=== PATIENT | female | born 1930 | race Caucasian/White ===

== ENCOUNTER 2018-11-06 14:30 | Observation (INO) ==
--- NOTE | 2018-11-06 14:54 | ERNOTE ---
Dyspnea - Date Date of Service: 11/06/18 - General Presenting Symptoms: shortness of breath Time Seen by Provider: 11/06/18 14:33 Source: patient Exam Limitations: no limitations - Immun/Allergies/Home Medications Immunizations: IMMUNIZATION HX Immunizations Up to Date Yes Allergies/Adverse Reactions: Allergies ciprofloxacin HCl [From Cipro HC] Allergy (Verified 11/06/18 14:53) sulfamethoxazole [From Bactrim DS] Allergy (Verified 11/06/18 14:53) trimethoprim [From Bactrim DS] Allergy (Verified 11/06/18 14:53) Home Medications: HOME MEDICATIONS Calcium Carbonate/Vitamin D3 [Calcium 600 + Vit D 400 Tablet] 1 ea PO DAILY 07/30/12 [Last Taken Unknown] Multivitamin/Iron/Folic Acid [Centrum Complete Multivit Tab] 1 ea PO DAILY 07/30/12 [Last Taken Unknown] levothyroxine 75 mcg tablet 75 mcg PO DAILY #90 tab 02/17/18 [Last Taken Unknown] sertraline 50 mg tablet 25 mg PO DAILY #45 tab 04/20/18 [Last Taken Unknown] Furosemide [Lasix] 20 mg PO BID #60 tab 06/12/18 [Last Taken Unknown] albuterol sulfate 2.5 mg/3 mL (0.083 %) solution for nebulization 1.25 mg IH QID PRN #90 ml 07/03/18 [Last Taken Unknown] metoprolol succinate ER 100 mg tablet,extended release 24 hr 100 mg PO BID #180 tab 07/03/18 [Last Taken Unknown] naproxen 500 mg tablet 500 mg PO BID #180 tab 07/03/18 [Last Taken Unknown] alprazolam 0.5 mg tablet 0.5 mg PO BID-TID PRN #30 tab 10/13/18 [Last Taken Unknown] amlodipine 5 mg tablet 5 mg PO DAILY #90 tab 10/26/18 [Last Taken Unknown] hydrochlorothiazide 25 mg tablet 25 mg PO DAILY #90 tab 10/26/18 [Last Taken Unknown] omeprazole 40 mg capsule,delayed release 40 mg PO DAILY #90 cap 10/26/18 [Last Taken Unknown] - History of Present Illness Narrative: Patient states for the past 2 wks she has been more SOB especially with activity. States today she became much more SOB and decided she had better come to the ER before the weekend. Called her PCP this past week and they told her to come to the ER. However she put it off until today. Denies any chest pain. States last Thanksgiving she was diagnosed with CHF and placed on lasix. Patient does not have any home O2 but borrowed a neighbors. In the triage room on 2 liters she was 55% NC. Patient states she is not staying and will leave AMA because her kids are coming home for [facility]. 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 Denies: chest pain/discomfort Review of Systems - Review of Systems Constitutional: Present: weakness, fatigue, decreased activity level. Absent: fever, chills EYE: Present: no symptoms reported ENT: Present: no symptoms reported Respiratory: Present: shortness of breath - Very severe with activity Cardiology: Present: edema - lower extremities. . Absent: chest pain, palpitations Gastrointestinal/Abdominal: Present: no symptoms reported Genitourinary: Present: no symptoms reported Musculoskeletal: Present: no symptoms reported Skin: Present: other - cyanotic on arrival. Neurological: Present: dizziness/light-headedness Hematologic/Lymphatic: Present: no symptoms reported Psych: Present: no symptoms reported Medical History (Updated 06/12/18 @ 11:56 by Pierre Luna DO) COPD (chronic obstructive pulmonary disease) Onset Date: Unknown GERD (gastroesophageal reflux disease) Onset Date: Unknown Hyperlipidemia Onset Date: Unknown Hypertension Onset Date: Unknown Hypothyroidism (acquired) Onset Date: Unknown Osteoarthritis Onset Date: Unknown Occipital neuralgia Onset Date: ~2012 Surgical History: Surgical History (Updated 03/09/18 @ 11:06 by Nani Arana CMA) History of ERCP Onset Date: 04/21/15 History of hernia repair Onset Date: 04/11/15 History of hip replacement, 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 01/2011, left 11/2010 History of left cataract surgery Onset Date: 08/17/12 History of right cataract surgery Onset Date: 08/03/12 History of temporal artery biopsy Onset Date: 10/02/12 Hx laparoscopic cholecystectomy Onset Date: 04/04/15 Family History: Family History (Updated 03/09/18 @ 11:08 by Nani Arana CMA) Father , age 83 CHF (congestive heart failure) Hypertension Emphysema, unspecified Mother , age 73 Diabetes CVA (cerebral vascular accident) Hypertension Social History: Preferred Language Czech Smoking Status Former smoker Psych History No pertinent hx (Last Updated 06/22/18 @ 13:47 by Naya Hernandez MD) No Social History Section defined Physical Exam - Physical Exam General Appearance: Present: wd/wn, alert, severe distress Head Exam: Present: normal inspection Eye Exam: Normal inspection: bilateral, PERRL: bilateral, EOMI: bilateral Ears, Nose, Throat: Present: normal ENT inspection, normal pharynx Neck: Present: normal inspection, nontender, other - No JVD bilateral at 30 degrees. . Absent: carotid bruit Respiratory: Present: respiratory distress, accessory muscle use, decreased b reath sounds, other - Cyanotic nose, lips, and tongue. Cardiovascular/Chest: Present: regular rate, rhythm, no murmur Peripheral Pulses: N=norm/S=strong/W=weak/B=bound/A=absent: Radial (R): Normal, Radial (L): Normal, Dorsalis-pedis (R): Normal, Dorsalis-pedis (L): Normal Gastrointestinal/Abdominal: Present: normal bowel sounds, nontender, nondistended, soft Back Exam: Present: normal range of motion, no CVA tenderness Extremity Exam: Present: extremity edema - 3+ bilateral pitting pedal edema Neurological Exam: Present: alert, oriented, normal mood/affect, no motor/sensory deficits Skin Exam: Present: cyanosis - nose, lips, and tongue. Lymphatic Exam: Present: no adenopathy Progress - Results and Orders Patient's Lab Results:: I have reviewed the patient's lab results. - Vital Signs Patient's Vital Signs:: I have reviewed the patient's vital signs. - CT/Ultrasound CT/Ultrasound Narrative: CTA chest - No PE, Mild esophagitis. - Progress/Reassessment Chief Complaint: Dyspnea Progress:: Improved - Improved with oxygen. Patient still requires 2 liters O2 to keep sats >90%. - Transfer of Care Additional Notes: Discussed patient with Dr. Daniels who agrees patient meets expectations for obs. placement. Discussed options with patient and she agrees to stay. Patient may need to be qualified for home O2. Departure Clinical Impression: Bronchial spasms, COPD exacerbation, Hypoxia - Departure Disposition: Still a patient Condition: Stable Referrals: Naya Hernandez MD [Primary Care Provider] -
[2018-11-06 15:03] LABS: Hematocrit 49.9 % (37.0-47.0); Hemoglobin 16.9 gm/dL (12.5-16.0); Mean Cell Volume 102.3 fl (78-100); Mean Corpuscular Hemoglobin 34.6 pg (27-31); Mean Corpuscular Hgb Conc 33.9 g/dl (32-36); Mean Platelet Volume 9.7 fl (8-12.5); Neutrophil # 6.1 K/mm3 (1.3-6.0); Platelet Count 215 K/mm3 (150-450); Red Blood Count 4.88 M/mm3 (4.2-5.4); White Blood Count 9.5 K/mm3 (4.0-10.5)
[2018-11-06 15:19] LABS: Anion Gap 9.3 mmol/L (6.8-13.8); BNP * 4275 pg/mL (5-550); BUN/Creatinine Ratio 31.2 (9.0-21.6); Blood Urea Nitrogen 39 mg/dL (3-23); Calcium * 9.6 mg/dL (7.9-10.9); Carbon Dioxide 35.8 mmol/L (24-32.6); Chloride 96 mmol/L (97-106); Glucose * 117 mg/dL (70-110); Potassium 3.1 mmol/L (3.4-4.6); Sodium 138 mmol/L (132-142); Troponin I 0.017 ng/mL (0.00-0.10)
[2018-11-06] MEDS ORDERED: FUROSEMIDE 10 MG/ML VIAL IV ONE (15:47)
[2018-11-06] MEDS ORDERED: POTASSIUM CHLORIDE 20 MEQ TABLET.SA PO ONE (15:57)
[2018-11-06 17:02] LABS: Urine Bilirubin Negative (NEGATIVE); Urine Blood Negative /ul (NEGATIVE); Urine Ketone Negative (NEGATIVE); Urine Nitrite Negative (NEGATIVE); Urine Protein Negative (NEGATIVE); Urine Urobilinogen Normal (NORMAL); Urine pH 6.5 pH (5.0-7.0)
[2018-11-06 17:15] LABS: Urine Appearance Clear (CLEAR); Urine Bacteria 1+; Urine Color Yellow; Urine RBC 0-5 /hpf (0-5); Urine WBC 0-5 /hpf (0-5)
[2018-11-06] MEDS ORDERED: cefTRIAXone SODIUM 1,000 MG/100 ML BAG IV ONE (20:35)
[2018-11-06] MEDS ORDERED: METHYLPREDNISOLONE SOD SUCC/PF 40 MG/ML VIAL IV ONE (20:36)
[2018-11-06] MEDS ORDERED: ALBUTEROL SULFATE 2.5 MG/0.5 ML VIAL.NEB IH PRN (20:42)
[2018-11-06] MEDS ORDERED: ALBUTEROL SULFATE/IPRATROPIUM 3 ML NEBU IH SCH (20:45)
[2018-11-06] MEDS ORDERED: ALPRAZolam 0.5 MG TABLET PO PRN (23:36)
[2018-11-06] MEDS ORDERED: ALBUTEROL SULFATE/IPRATROPIUM 3 ML NEBU IH ONE (23:59)
[2018-11-07] MEDS: ALBUTEROL SULFATE/IPRATROPIUM 3 ML NEBU IH SCH ×2 (00:05→06:03)
[2018-11-07] MEDS ORDERED: ALBUTEROL SULFATE 2.5 MG/0.5 ML VIAL.NEB IH PRN (07:15)
--- NOTE | 2018-11-07 07:23 | HP ---
Chief Complaint - Chief Complaint Date of Service: 11/07/18 Time of Service: 07: Chief Complaint: shortness of breath History of Present Illness: Delores Moore is an 88-year-old white female, patient of Dr. Hernandez, with past medical history of COPD, hypertension, hypothyroidism, hyperlipidemia who was admitted on 11/06/2018 because of shortness of breath. 4 weeks prior to admission the patient started getting short of breath with activity.. She denied fever or chills but would have occasional coughing and wheezing. 3 weeks ago she fell down and landed on the right side of her body hitting her shoulder and knee. She got almost bedridden with this episode. One week ago she started getting more short of breath associated with chills, sensation of having phlegm in her throat and chills. She called her PCP and she was told to go to the emergency room. Yesterday her shortness of breath as per patient was the maximum she asked for her neighbor's oxygen. The oxygen was not working properly and when she got to the emergency room as per ED she was blue on her face oxygenating in the 50''%. They put her on oxygen in the emergency room and her oxygen saturation improved although with ambulation she went down to the 70s again. WBC count, hemoglobin. Her GFR was 43, potassium 3.1. Was normal, EKG showed normal sinus rhythm with anterior septal myocardial infarction age undetermined. Her troponin was normal. Her chest x-ray showed no acute cardiopulmonary findings or pulmonary vascular congestion. Her d-dimer was elevated and so a CT angios was done which showed no pulmonary embolism, mild to moderate coronary calcification with mild enlarged heart. Emphysematous changes with chronic fibrotic changes. She was then admitted for observation and further treatment. Medical History (Updated 11/07/18 @ 08:03 by Rigo Daniels MD) CHF (congestive heart failure) COPD (chronic obstructive pulmonary disease) Onset Date: Unknown GERD (gastroesophageal reflux disease) Onset Date: Unknown Hyperlipidemia Onset Date: Unknown Hypertension Onset Date: Unknown Hypothyroidism (acquired) Onset Date: Unknown Osteoarthritis Onset Date: Unknown Occipital neuralgia Onset Date: ~2012 Surgical History: Surgical History (Updated 11/07/18 @ 07:23 by Rigo Daniels MD) History of ERCP Onset Date: 04/21/15 History of hernia repair Onset Date: 04/11/15 History of hip replacement, total Onset Date: right 01/2011, left 11/2010 History of left cataract surgery Onset Date: 08/17/12 History of right cataract surgery Onset Date: 08/03/12 History of temporal artery biopsy Onset Date: 10/02/12 Hx laparoscopic cholecystectomy Onset Date: 04/04/15 Family History: Family History (Updated 03/09/18 @ 11:08 by Nani Arana CMA) Father , age 83 CHF (congestive heart failure) Hypertension Emphysema, unspecified Mother , age 73 Diabetes CVA (cerebral vascular accident) Hypertension Social History: Patient Lives/Resources Home Utilized Occupation retired Preferred Language Portuguese Do you have any druze or Yes: muslim cultural preference? Smoking Status Former smoker Have you smoked in the past 12 No months Psych History No pertinent hx Alcohol Use none Drug Use none (Last Updated 06/22/18 @ 13:47 by Naya Hernandez MD) No Social History Section defined Review Of Systems (GEN) - Review of Systems Generalized/Overall Review: Present: Weakness, Chills. Absent: Fever EENTM: Absent: Blurred Vision Respiratory: Present: Cough, Shortness of Breath, Wheezing. Absent: Orthopnea Cardiac: Present: Edema - at the end of manuelito day. Absent: Chest Pain, Palpitations Abdominal: Absent: Nausea, Vomiting Genitourinary: Absent: Urgency, Frequency Musculoskeletal: Present: Joint Pain Neurological: Absent: Headache Skin: Absent: Lesions, Rash Endocrine: Absent: Intolerance to Cold, Intolerance to Heat Misc: All systems neg except as marked Immunizations: IMMUNIZATION HX Immunizations Up to Date Yes History of Influenza Vaccine Yes Hx Pneumococcal Vaccination Yes Allergies/Adverse Reactions: Allergies Allergy/AdvReac Type Severity Reaction Status Date / Time ciprofloxacin HCl Allergy Verified 11/06/18 21:54 [From Cipro HC] sulfamethoxazole Allergy Verified 11/06/18 21:54 [From Bactrim DS] trimethoprim Allergy Verified 11/06/18 21:54 [From Bactrim DS] Home Medications: HOME MEDICATIONS Calcium Carbonate/Vitamin D3 [Calcium 600 + Vit D 400 Tablet] 1 ea PO DAILY 07/30/12 [Last Taken Unknown] Multivitamin/Iron/Folic Acid [Centrum Complete Multivit Tab] 1 ea PO DAILY 07/30/12 [Last Taken Unknown] levothyroxine 75 mcg tablet 75 mcg PO DAILY #90 tab 02/17/18 [Last Taken Unknown] sertraline 50 mg tablet 25 mg PO DAILY #45 tab 04/20/18 [Last Taken Unknown] Furosemide [Lasix] 20 mg PO BID #60 tab 06/12/18 [Last Taken Unknown] alprazolam 0.5 mg tablet 0.5 mg PO BID-TID PRN #30 tab 10/13/18 [Last Taken Unknown] amlodipine 5 mg tablet 5 mg PO DAILY #90 tab 10/26/18 [Last Taken Unknown] hydrochlorothiazide 25 mg tablet 25 mg PO DAILY #90 tab 10/26/18 [Last Taken Unknown] omeprazole 40 mg capsule,delayed release 40 mg PO DAILY #90 cap 10/26/18 [Last Taken Unknown] Metoprolol Tartrate 100 mg PO BID 11/06/18 [Last Taken Unknown] oxyCODONE HCL/ACETAMINOPHEN [Oxycodone-Acetaminophen 5-325] 1 ea PO DAILY PRN 11/06/18 [Last Taken Unknown] Albuterol Sulfate [Proair Hfa] 1 - 2 puff INHALATION Q4H PRN #1 inhaler 11/07/18 [Last Taken Unknown] Albuterol Sulfate/Ipratropium [Duoneb 2.5-0.5MG/3ML Soln] 3 ml INHALATION QID #150 vial 11/07/18 [Last Taken Unknown] Azithromycin [Zithromax] 250 mg PO DAILY 5 Days #6 tab 11/07/18 [Last Taken Unknown] predniSONE [Prednisone] 20 mg PO DAILY 5 Days #10 tab 11/07/18 [Last Taken Unknown] Exam - Exam Vital Signs: Vital Signs - Last Taken Temp 36.4 C 11/07/18 06:29 Pulse 64 11/07/18 06:29 Resp 20 11/07/18 06:29 BP 137/61 11/07/18 06:29 Pulse Ox 89 L 11/07/18 06:29 Constitutional: Present: Alert, Oriented x3, Cooperative, Elderly, Thin and frail ENT Exam: Present: hearing grossly normal Eye Exam: bilateral eye: normal inspection, PERRL, EOMI Neck: Present: supple Respiratory: Present: decreased breath sounds, wheezing - occasional, No rales Cardiovascular/Chest: Present: regular rate, rhythm, no JVD, systolic murmur Abdomen: Present: Normal bowel sounds, soft, nontender, nondistended Extremity: Present: no pedal edema, no calf tenderness Diagnostic Studies: Abnormal Lab Results 11/06/18 11/06/18 11/06/18 Range/Units 14:55 14:55 14:55 Hgb 16.9 H (12.5-16.0) gm/dL Hct 49.9 H (37.0-47.0) % MCV 102.3 H (78-100) fl MCH 34.6 H (27-31) pg Immature Gran # (Auto) 0.04 H (0.000-0.0310) K/mm3 Lymphocytes % 13.7 L (20-51) % Monocytes % 12.6 H (0.0-9) % Eosinophils % 7.9 H (0.0-3.0) % Neutrophils # 6.1 H (1.3-6.0) K/mm3 Lymphocytes # 1.30 L (1.5-3.5) k/mm3 Monocytes # 1.2 H (0.0-1.0) k/mm3 Eosinophils # 0.8 H (0.0-0.7) k/mm3 D-Dimer 1.60 H (0.19-0.49) ug/mL pCO2 (32.0-45.0) mmHg HCO3 (21.0-28.0) mmol/L Total CO2 (19.0-24.0) mmol/L Base Excess (-2.0-3.0) mmol/L Potassium 3.1 L (3.4-4.6) mmol/L Chloride 96 L (97-106) mmol/L Carbon Dioxide 35.8 H (24-32.6) mmol/L BUN 39 H D (3-23) mg/dL Est GFR (Non-Af Amer) 43 L D (60-130) mL/min BUN/Creatinine Ratio 31.2 H (9.0-21.6) Random Glucose 117 H (70-110) mg/dL B-Natriuretic Peptide 4275 H (5-550) pg/mL Urine Bacteria (NONE) 11/06/18 11/06/18 Range/Units 15:12 16:20 Hgb (12.5-16.0) gm/dL Hct (37.0-47.0) % MCV (78-100) fl MCH (27-31) pg Immature Gran # (Auto) (0.000-0.0310) K/mm3 Lymphocytes % (20-51) % Monocytes % (0.0-9) % Eosinophils % (0.0-3.0) % Neutrophils # (1.3-6.0) K/mm3 Lymphocytes # (1.5-3.5) k/mm3 Monocytes # (0.0-1.0) k/mm3 Eosinophils # (0.0-0.7) k/mm3 D-Dimer (0.19-0.49) ug/mL pCO2 57.6 H (32.0-45.0) mmHg HCO3 33.5 H (21.0-28.0) mmol/L Total CO2 35.2 H (19.0-24.0) mmol/L Base Excess 6.3 H (-2.0-3.0) mmol/L Potassium (3.4-4.6) mmol/L Chloride (97-106) mmol/L Carbon Dioxide (24-32.6) mmol/L BUN (3-23) mg/dL Est GFR (Non-Af Amer) (60-130) mL/min BUN/Creatinine Ratio (9.0-21.6) Random Glucose (70-110) mg/dL B-Natriuretic Peptide (5-550) pg/mL Urine Bacteria 1+ H (NONE) Laboratory Results WBC 9.5 K/mm3 (4.0-10.5) 11/06/18 14:55 RBC 4.88 M/mm3 (4.2-5.4) 11/06/18 14:55 Hgb 16.9 gm/dL (12.5-16.0) H 11/06/18 14:55 Hct 49.9 % (37.0-47.0) H 11/06/18 14:55 MCV 102.3 fl (78-100) H 11/06/18 14:55 MCH 34.6 pg (27-31) H 11/06/18 14:55 MCHC 33.9 g/dl (32-36) 11/06/18 14:55 RDW 13.0 % (11.5-14.0) 11/06/18 14:55 Plt Count 215 K/mm3 (150-450) 11/06/18 14:55 MPV 9.7 fl (8-12.5) 11/06/18 14:55 Immature Gran % (Auto) 0.40 % (0.001-0.429) 11/06/18 14:55 Immature Gran # (Auto) 0.04 K/mm3 (0.000-0.0310) H 11/06/18 14:55 65.0 % (42-75.0) 11/06/18 14:55 13.7 % (20-51) L 11/06/18 14:55 12.6 % (0.0-9) H 11/06/18 14:55 7.9 % (0.0-3.0) H 11/06/18 14:55 0.4 % (0.0-1.0) 11/06/18 14:55 Nucleated RBC % 0.0 k/mm3 (0-1) 11/06/18 14:55 6.1 K/mm3 (1.3-6.0) H 11/06/18 14:55 1.30 k/mm3 (1.5-3.5) L 11/06/18 14:55 1.2 k/mm3 (0.0-1.0) H 11/06/18 14:55 0.8 k/mm3 (0.0-0.7) H 11/06/18 14:55 Absolute Basophils 0.0 k/mm3 (0.0-0.1) 11/06/18 14:55 1.60 ug/mL (0.19-0.49) H 11/06/18 14:55 pCO2 57.6 mmHg (32.0-45.0) H 11/06/18 15:12 pO2 87.6 mmHg (83.0-108.0) 11/06/18 15:12 HCO3 33.5 mmol/L (21.0-28.0) H 11/06/18 15:12 Total CO2 35.2 mmol/L (19.0-24.0) H 11/06/18 15:12 Base Excess 6.3 mmol/L (-2.0-3.0) H 11/06/18 15:12 ABG pH 7.38 (7.35-7.45) 11/06/18 15:12 ABG O2 Sat (Measured) 96.3 % (94.0-98.0) 11/06/18 15:12 Sodium 138 mmol/L (132-142) 11/06/18 14:55 138 mmol/L (130-142) 11/06/18 14:55 Potassium 3.1 mmol/L (3.4-4.6) L 11/06/18 14:55 Chloride 96 mmol/L (97-106) L 11/06/18 14:55 Carbon Dioxide 35.8 mmol/L (24-32.6) H 11/06/18 14:55 9.3 mmol/L (6.8-13.8) 11/06/18 14:55 BUN 39 mg/dL (3-23) H D 11/06/18 14:55 1.25 mg/dL (0.4-1.4) 11/06/18 14:55 Est GFR (Non-Af Amer) 43 mL/min (60-130) L D 11/06/18 14:55 31.2 (9.0-21.6) H 11/06/18 14:55 117 mg/dL (70-110) H 11/06/18 14:55 Calcium 9.6 mg/dL (7.9-10.9) 11/06/18 14:55 0.017 ng/mL (0.00-0.10) 11/06/18 14:55 B-Natriuretic Peptide 4275 pg/mL (5-550) H 11/06/18 14:55 Yellow 11/06/18 16:20 Clear (CLEAR) 11/06/18 16:20 6.5 pH (5.0-7.0) 11/06/18 16:20 Ur Specific [place] 1.010 SP.GR. (1.005-1.010) 11/06/18 16:20 Negative mg/dL (NEGATIVE) 11/06/18 16:20 Negative mg/dL (NEGATIVE) 11/06/18 16:20 Negative mg/dL (NEGATIVE) 11/06/18 16:20 Negative /ul (NEGATIVE) 11/06/18 16:20 Negative (NEGATIVE) 11/06/18 16:20 Negative mg/dl (NEGATIVE) 11/06/18 16:20 Normal EU/dl (NORMAL) 11/06/18 16:20 Ur Leukocyte Esterase Negative /ul (NEGATIVE) 11/06/18 16:20 0-5 /hpf (0-5) 11/06/18 16:20 0-5 /hpf (0-5) 11/06/18 16:20 Ur Epithelial Cells 0-5 /hpf (0-5) 11/06/18 16:20 1+ (NONE) H 11/06/18 16:20 No culture indicated 11/06/18 16:20 Assessment/Plan - Narrative Narrative: Continue with her home medications - Assessment/Plan (1) Hypoxia Assessment: continue with O2 supplementation Problem: Acute (2) COPD exacerbation Assessment: continue with Duoneb/ IV solumedrol/IV antibitoics Problem: Acute (3) COPD (chronic obstructive pulmonary disease) with acute bronchitis Assessment: continue with antibiotics Problem: Acute (4) Hypokalemia Problem: Acute (5) Hypertension Problem: Chronic Qualifiers: Hypertension type: essential hypertension Qualified Code(s): I10 - Essential (primary) hypertension (6) CRF (chronic renal failure) Assessment: will hold her naproxen Problem: Chronic Qualifiers: Chronic kidney disease stage: stage 3 (moderate) Qualified Code(s): N18.3 - Chronic kidney disease, stage 3 (moderate)
[2018-11-07] MEDS ORDERED: oxyCODONE HCL/ACETAMINOPHEN 1 TAB TABLET PO PRN (07:53)
[2018-11-07] MEDS ORDERED: METHYLPREDNISOLONE SOD SUCC/PF 40 MG/ML VIAL IV SCH (08:00)
[2018-11-07] MEDS: METOPROLOL TARTRATE 100 MG TABLET PO SCH ×2 (08:42)
[2018-11-07] MEDS ORDERED: PANTOPRAZOLE SODIUM 40 MG TABLET.EC PO SCH (09:00)
[2018-11-07] MEDS ORDERED: FUROSEMIDE 20 MG TABLET PO SCH (09:00)
[2018-11-07] MEDS ORDERED: METOPROLOL TARTRATE 100 MG TABLET PO SCH (09:00)
[2018-11-07] MEDS ORDERED: HYDROCHLOROTHIAZIDE 25 MG TABLET PO SCH (09:00)
[2018-11-07] MEDS ORDERED: amLODIPine BESYLATE 5 MG TABLET PO SCH (09:00)
[2018-11-07] MEDS ORDERED: LEVOTHYROXINE SODIUM 75 MCG TABLET PO SCH (09:00)
[2018-11-07] MEDS ORDERED: SERTRALINE HCL 50 MG TABLET PO SCH (09:00)
[2018-11-07] MEDS ORDERED: MULTIVITAMIN/IRON/FOLIC ACID 1 TAB TABLET PO SCH (09:00)
[2018-11-07] MEDS ORDERED: CALCIUM CARBONATE/VITAMIN D3 1 TAB TABLET PO SCH (09:00)
[2018-11-07] MEDS ORDERED: POTASSIUM CHLORIDE 20 MEQ TABLET.SA PO ONE (10:50)
--- NOTE | 2018-11-07 11:24 | DS ---
(1) Hypoxia Problem: Acute (2) COPD exacerbation Problem: Acute (3) COPD (chronic obstructive pulmonary disease) with acute bronchitis Problem: Acute (4) Hypokalemia Problem: Acute (5) Hypertension Problem: Chronic Qualifiers: Hypertension type: essential hypertension Qualified Code(s): I10 - Essential (primary) hypertension Description of Stay: Delores Moore is an 88-year-old white female, patient of Dr. Hernandez, with past medical history of COPD, hypertension, hypothyroidism, hyperlipidemia who was admitted on 11/06/2018 because of shortness of breath. 4 weeks prior to admission the patient started getting short of breath with activity.. She denied fever or chills but would have occasional coughing and wheezing. 3 weeks ago she fell down and landed on the right side of her body hitting her shoulder and knee. She got almost bedridden with this episode. One week ago she started getting more short of breath associated with chills, sensation of having phlegm in her throat and chills. She called her PCP and she was told to go to the emergency room. Yesterday her shortness of breath as per patient was the "maximum" she asked for her neighbor's oxygen. The oxygen was not working properly and when she got to the emergency room as per ED she was blue on her face oxygenating in the 50''%. They put her on oxygen in the emergency room and her oxygen saturation improved although with ambulation she went down to the 70s again. WBC count, hemoglobin. Her GFR was 43, potassium 3.1. Was normal, EKG showed normal sinus rhythm with anterior septal myocardial infarction age undetermined. Her troponin was normal. Her chest x-ray showed no acute cardiopulmonary findings or pulmonary vascular congestion. Her d-dimer was elevated and so a CT angio was done which showed no pulmonary embolism, mild to moderate coronary calcification with mild enlarged heart. Emphysematous changes with chronic fibrotic changes. She was then admitted for observation and further treatment. She was started on IV antibiotics, duoneb breathing treatments, IV solumedrol . At rest w/o she goes in the 82 % and with ambulations she dropped own to 72 %. With O2 she goes up in the 93-94%. She wants to go home and will send her home with home O2 at 2-3 L to keep O2 saturation above 88 %, prednisone, azithromycin, Duoneb and Albuterol inhaler for rescue breathing. Will schedule her an Echocardiogram and Xray of her right shoulder on outpatient basis. Procedures Performed: none Results and Findings: Lab Pending Results 11/06/18 14:55: WBC 9.5, RBC 4.88, Hgb 16.9 H, Hct 49.9 H, MCV 102.3 H, MCH 34.6 H, MCHC 33.9, RDW 13.0, Plt Count 215, MPV 9.7, Immature Gran % (Auto) 0.40, Immature Gran # (Auto) 0.04 H, Neutrophils % 65.0, Lymphocytes % 13.7 L, Monocytes % 12.6 H, Eosinophils % 7.9 H, Basophils % 0.4, Nucleated RBC % 0.0, Neutrophils # 6.1 H, Lymphocytes # 1.30 L, Monocytes # 1.2 H, Eosinophils # 0.8 H, Absolute Basophils 0.0 11/06/18 14:55: Sodium 138, Plasma Sodium 138, Potassium 3.1 L, Chloride 96 L, Carbon Dioxide 35.8 H, Anion Gap 9.3, BUN 39 H D, Creatinine 1.25, Est GFR (Non- Af Amer) 43 L D, BUN/Creatinine Ratio 31.2 H, Random Glucose 117 H, Calcium 9.6, Troponin I 0.017, B-Natriuretic Peptide 4275 H 11/06/18 14:55: D-Dimer 1.60 H 11/06/18 15:12: pCO2 57.6 H, pO2 87.6, HCO3 33.5 H, Total CO2 35.2 H, Base Excess 6.3 H, ABG pH 7.38, ABG O2 Sat (Measured) 96.3 11/06/18 16:20: Urine Color Yellow, Urine Appearance Clear, Urine pH 6.5, Ur Specific [place] 1.010, Urine Protein Negative, Urine Glucose (UA) Negative, Urine Ketones Negative, Urine Blood Negative, Urine Nitrate Negative, Urine Bilirubin Negative, Urine Urobilinogen Normal, Ur Leukocyte Esterase Negative, Urine RBC 0-5, Urine WBC 0-5, Ur Epithelial Cells 0-5, Urine Bacteria 1+ H, Urine Culture Comments No culture indicated Discharge Location: Home Disposition: Home self-care Condition: Stable Discharge Activity: Activity as tolerated Discharge Diet: Low salt Referrals: Naya Hernandez MD [Primary Care Provider] - Additional Patient Instructions (free text): Follow up with Dr. Hernandez in 1 week. Schedule an Echocardiogram - [facility] and Xray of her right shoulder as an outpatient- fall /decreased ROM. Prescriptions (Any new or edited meds): Albuterol Sulfate/Ipratropium [Duoneb 2.5-0.5MG/3ML Soln] 3 ml INHALATION QID #150 vial predniSONE [Prednisone] 20 mg PO DAILY 5 Days #10 tab Albuterol Sulfate [Proair Hfa] 1 - 2 puff INHALATION Q4H PRN #1 inhaler PRN Reason: Shortness Of Breath Azithromycin [Zithromax] 250 mg PO DAILY 5 Days #6 tab Complete Home Medications List: Complete Home Medication List: Calcium Carbonate/Vitamin D3 [Calcium 600 + Vit D 400 Tablet] 1 ea PO DAILY 07/30/12 Multivitamin/Iron/Folic Acid [Centrum Complete Multivit Tab] 1 ea PO DAILY 07/30/12 levothyroxine 75 mcg tablet 75 mcg PO DAILY #90 tab 02/17/18 sertraline 50 mg tablet 25 mg PO DAILY #45 tab 04/20/18 Furosemide [Lasix] 20 mg PO BID #60 tab 06/12/18 alprazolam 0.5 mg tablet 0.5 mg PO BID-TID PRN #30 tab 10/13/18 amlodipine 5 mg tablet 5 mg PO DAILY #90 tab 10/26/18 hydrochlorothiazide 25 mg tablet 25 mg PO DAILY #90 tab 10/26/18 omeprazole 40 mg capsule,delayed release 40 mg PO DAILY #90 cap 10/26/18 Metoprolol Tartrate 100 mg PO BID 11/06/18 oxyCODONE HCL/ACETAMINOPHEN [Oxycodone-Acetaminophen 5-325] 1 ea PO DAILY PRN 11/06/18 Albuterol Sulfate [Proair Hfa] 1 - 2 puff INHALATION Q4H PRN #1 inhaler 11/07/18 Albuterol Sulfate/Ipratropium [Duoneb 2.5-0.5MG/3ML Soln] 3 ml INHALATION QID #150 vial 11/07/18 Azithromycin [Zithromax] 250 mg PO DAILY 5 Days #6 tab 11/07/18 predniSONE [Prednisone] 20 mg PO DAILY 5 Days #10 tab 11/07/18 Amb Orders for Discharge: Shoulder 3 of More Views RT * Time Frame: 1 Week, Location: Radiology US Echocardiogram Complete * Time Frame: 1 Week, Location: Radiology
[2018-11-07 13:38] VITALS: BP 138/57
== END 2018-11-07 13:43 | disposition home or self-care (01) ==
LOC: MS 14:30 → ER 14:30 → MS 21:50
PROVIDERS: ADMIT Internal Medicine; ATTEND Internal Medicine
DX: M19.90 Unspecified osteoarthritis, unspecified site; I50.9 Heart failure, unspecified; R09.02 Hypoxemia
CPT/HCPCS: 36415; 36600; 71020; 71046; 71275; 80048; 81001; 82803; 83519; 83880; 84484; 85025; 85379; 93005; 94640; 94664; 96365; 96366; 96375; 99285; G0378